=== PATIENT | male | born 1935 | race Asian ===

== ENCOUNTER 2019-07-22 20:11 | Inpatient (IN) | payer OTHER, MEDICAID ==
[~2019-07-22] VITALS: Ht 172.7 cm; Wt 77.1 kg
[2019-07-22 20:17] VITALS: Ht 172.7 cm; Wt 77.1 kg
[2019-07-22 20:46] LABS: BASOPHIL % 1.2 % (0-2); PLATELET COUNT 168 x10^3mcL (130-400)
[2019-07-22 20:53] LABS: CALCIUM 9.1 mg/dL (8.5-10.1); CARBON DIOXIDE 22.6 mmol/L (21-32); CHLORIDE SERUM 102 mmol/L (98-107); CREATININE SERUM 1.5 mg/dL (0.7-1.3); GLUCOSE SERUM 198 mg/dL (74-106); POTASSIUM SERUM 4.6 mmol/L (3.5-5.1); SODIUM SERUM 137 mmol/L (136-145)
[2019-07-22 20:57] LABS: ALBUMIN 3.7 g/dL (3.4-5.0); ALKALINE PHOSPHATASE 118 U/L (46-116); ALT/SGPT 58 U/L (16-63); AMYLASE 93 U/L (25-115); AST/SGOT 89 U/L (15-37); BILIRUBIN TOTAL 0.8 mg/dL (0.20-1.00); LIPASE 87 IU/L (73-393); TOTAL PROTEIN, SERUM 8.8 g/dL (6.4-8.2)
[2019-07-22 23:50] LABS: CHOLESTEROL/HDL RATIO 4.3
[2019-07-22 23:51] LABS: T3 TOTAL 1.23 ng/mL
[2019-07-22 23:53] LABS: FREE T4 1.44 ng/dL (0.76-1.46); FREE THYROXINE INDEX 3.1 ug/dL (1.4-4.5)
[2019-07-23] LABS: UA SPECIFIC GRAVITY 1.025 (1.005-1.035); microscopic required? YES; urine erythrocyte NEGATIVE (NEGATIVE)
[2019-07-23 00:09] VITALS: BP 156/73
[2019-07-23] MEDS ORDERED: LYRICA100 M1 PO (00:59)
[2019-07-23] MEDS ORDERED: COZAAR50 M1 PO (01:02)
[2019-07-23] MEDS ORDERED: FORTAMET500 M1 (01:03)
[2019-07-23] MEDS ORDERED: PROPRANOLOL HCL10 MG PO (01:04)
[2019-07-23] MEDS ORDERED: CYMBALTA30 M1 PO (01:05)
[2019-07-23] MEDS ORDERED: PROCARDIA10 MG PO (01:05)
[2019-07-23] MEDS ORDERED: COLCHICINE0.6 M2 PO ×2 (01:06)
[2019-07-23] MEDS ORDERED: PREDNISONE10 MG PO (01:10)
[2019-07-23] MEDS ORDERED: GLU850 PO (04:29)
[2019-07-23 05:30] VITALS: BP 145/77
[2019-07-23 06:26] LABS: BASOPHIL % 0.5 % (0-2); PLATELET COUNT 146 x10^3mcL (130-400)
[2019-07-23 06:54] LABS: CALCIUM 8.4 mg/dL (8.5-10.1); CARBON DIOXIDE 27.2 mmol/L (21-32); CHLORIDE SERUM 102 mmol/L (98-107); CREATININE SERUM 1.5 mg/dL (0.7-1.3); GLUCOSE SERUM 177 mg/dL (74-106); POTASSIUM SERUM 4.1 mmol/L (3.5-5.1); SODIUM SERUM 138 mmol/L (136-145)
[2019-07-23 08:33] VITALS: BP 144/76
[2019-07-23 12:55] VITALS: BP 148/80
[2019-07-23] MEDS ORDERED: MIRALAX17 GM PO (15:04)
[2019-07-23 16:05] VITALS: BP 148/80
== END 2019-07-23 17:13 | disposition home or self-care (01) | DRG 388 ==
LOC: ED 20:11 → EDBD 20:11 → MU 22:43
PROVIDERS: Emergency Medicine; ADMIT Family Medicine
DX: K56.41 Fecal impaction (principal); N17.0 Acute kidney failure with tubular necrosis; G61.81 Chronic inflammatory demyelinating polyneuritis; R74.0 Nonspecific elevation of levels of transaminase and lactic acid dehydrogenase [LDH]; I12.9 Hypertensive chronic kidney disease with stage 1 through stage 4 chronic kidney disease, or unspecified chronic kidney disease; N18.9 Chronic kidney disease, unspecified; E11.22 Type 2 diabetes mellitus with diabetic chronic kidney disease; M47.896 Other spondylosis, lumbar region; M10.9 Gout, unspecified; Z68.25 Body mass index [BMI] 25.0-25.9, adult; Z79.84 Long term (current) use of oral hypoglycemic drugs; Z79.52 Long term (current) use of systemic steroids; Z86.010 Personal history of colon polyps
CPT/HCPCS: 82962; 83880; 84439; G0378; J1885; J2543; J7030; Q0092